=== PATIENT | male | born 1960 | race African-American/Black ===

== ENCOUNTER 2017-11-25 12:56 | Emergency (ER) | payer OTHER ==
[2017-11-25 13:08] VITALS: BP 111/70; PULSE 83; TEMP 98.3; BMI 36.1
--- NOTE | 2017-11-25 14:13 | PDOC ---
History of Present Illness - General Chief Complaint: Injury Stated Complaint: RIGHT FOOT INJURY Time Seen by Provider: 11/25/17 13:58 Past History - Past Medical History Allergies/Adverse Reactions: Allergies Allergy/AdvReac Type Severity Reaction Status Date / Time No Known Allergies Allergy Verified 11/25/17 13:04 Home Medications: Ambulatory Orders Colchicine 0.6 mg PO DAILY #7 capsule 11/25/17 Methylprednisolone [Medrol Dose Ravindra] 4 mg PO ASDIR #21 tablet 11/25/17 COPD: No DVT: No Dementia: No Diabetes: Yes HTN: Yes Hypercholesterolemia: Yes - Immunization History Immunization Up to Date: Yes - Suicide/Smoking/Psychosocial Hx Smoking History: Current every day smoker Have you smoked in the past 12 months: Yes Number of Cigarettes Smoked Daily: 10 Information on smoking cessation initiated: No Hx Alcohol Use: No Drug/Substance Use Hx: No Substance Use Type: None *Physical Exam - Vital Signs Last Vital Signs Temp Pulse Resp BP Pulse Ox 98.3 F 83 17 111/70 96 11/25/17 13:04 11/25/17 13:04 11/25/17 13:04 11/25/17 13:04 11/25/17 13:04 ED Treatment Course - RADIOLOGY Radiology Studies Ordered: Category Date Time Status ANKLE & FOOT-RIGHT* [RAD] Stat Radiology 11/25/17 13:38 Taken *DC/Admit/Observation/Transfer Diagnosis at time of Disposition: Gout Qualifiers: Gout site: toe Gout etiology: unspecified cause Chronicity: acute Laterality: right Qualified Code(s): M10.9 - Gout, unspecified - Discharge Dispostion Disposition: HOME Condition at time of disposition: Good - Prescriptions Prescriptions: Colchicine 0.6 mg PO DAILY #7 capsule Methylprednisolone [Medrol Dose Ravindra] 4 mg PO ASDIR #21 tablet - Referrals Referrals: Kris Garland MD [Staff Physician] - - Patient Instructions Printed Discharge Instructions: DI for Gout Additional Instructions: You have gout. This is what causing the pain in your toe. Please take steroids as directed for one week. Please monitor your blood sugars as steroid make your sugar is high. Please take the colchicine daily. He may also take ibuprofen 800 mg 3 times a day. Elevate your foot you may apply ice or heat to the area which ever feels better. Please follow up with her primary care doctor this week. Return to the emergency department if you have worsening pain, shortness of breath, the faculty walking or any changes in her symptoms. - Post Discharge Activity Forms/Work/School Notes: Back to Work
[2017-11-25] MEDS ORDERED: INDOMETHACIN 50 MG CAPSULE PO ONE (14:53)
== END 2017-11-25 16:18 | disposition home or self-care (01) ==
LOC: JERFT 12:56
DX: M10.9 Gout, unspecified (principal); I10 Essential (primary) hypertension; E11.9 Type 2 diabetes mellitus without complications; E78.00 Pure hypercholesterolemia, unspecified; F17.210 Nicotine dependence, cigarettes, uncomplicated
CPT/HCPCS: 36415; 73610-TC-RT; 73630-TC-RT; 84550; 99281-25

== ENCOUNTER 2018-01-07 08:11 | Emergency (ER) | payer OTHER ==
--- NOTE | 2018-01-07 08:21 | PDOC ---
History of Present Illness - General Stated Complaint: EDEMA Time Seen by Provider: 01/07/18 08:15 - History of Present Illness Initial Comments: 01/07/18 08:40 57 yo M with h/o HTN, NIDDM, and gout who presents with R sided ankle pain. Pt. reports severe, sharp R ankle pain and swelling beginning saturday. Pain worse with weight bearing. Denies warmth, redness of joint. Denies ankle trauma, or injury. Reports 5 years of gout with recurrent R sided MTP joint pain. Also endorses 1 year of epsiodic R ankle pain. Recently evaluated in [facility] ED ( ) for gout attack. D/c'd with Medrol dose pack and colchicine. R ankle/foot plain film with no evidence of acute pathology. Chronic degenerative changes.Denies N/V, CP, cough, SOB, numbness/tinlging, weakness, abdominal pain , urinary or bowel complaints. Patient PCP recently d/c'd indomethacin 200 mg 10 days ago. On Allopurinol. On lisniopril for HTN. Denies losartan use. Denies recent surgery, trauma, immobilization. Denies h/o malignancy. Past History - Past Medical History Allergies/Adverse Reactions: Allergies Allergy/AdvReac Type Severity Reaction Status Date / Time No Known Allergies Allergy Verified 01/07/18 08:30 Home Medications: Ambulatory Orders Allopurinol [Zyloprim -] 100 mg PO DAILY 01/07/18 Chlorthalidone 25 mg PO DAILY 01/07/18 Colchicine [Colcrys -] 0.6 mg PO DAILY #7 tablet 01/07/18 Enalapril Maleate [Vasotec] 20 mg PO DAILY 01/07/18 Hydrocodone/Acetaminophen [Hydrocodone-Acetamin 5-325 mg] 1 each PO PRN PRN Metformin HCl [Metformin HCl ER] 1,000 mg PO DAILY 01/07/18 Methylprednisolone [Medrol Dose Ravindra] 4 mg PO ASDIR #21 tablet 01/07/18 COPD: No DVT: No Dementia: No Diabetes: Yes HTN: Yes Hypercholesterolemia: Yes - Immunization History Immunization Up to Date: Yes - Suicide/Smoking/Psychosocial Hx Smoking History: Current every day smoker Have you smoked in the past 12 months: Yes Number of Cigarettes Smoked Daily: 10 Hx Alcohol Use: No Drug/Substance Use Hx: No Substance Use Type: None Review of Systems - Review of Systems Comments:: 01/07/18 08:18 GENERAL/CONSTITUTIONAL: No fever or chills. No weakness. HEAD, EYES, EARS, NOSE AND THROAT: No change in vision. No ear pain or discharge. No sore throat.- CARDIOVASCULAR: No chest pain or shortness of breath RESPIRATORY: No cough, wheezing, or hemoptysis. GASTROINTESTINAL: No nausea, vomiting, diarrhea or constipation. GENITOURINARY: No dysuria, frequency, or change in urination. MUSCULOSKELETAL: + R leg swelling/pain. No neck or back pain. SKIN: No rash NEUROLOGIC: No headache, vertigo, loss of consciousness, or change in strength/ sensation. ENDOCRINE: No increased thirst. No abnormal weight change HEMATOLOGIC/LYMPHATIC: No anemia, easy bleeding, or history of blood clots. ALLERGIC/IMMUNOLOGIC: No hives or skin allergy. *Physical Exam - Physical Exam Comments: 01/07/18 08:19 GENERAL: Awake, alert, and fully oriented, in no acute distress HEAD: No signs of trauma, normocephalic, atraumatic EYES: PERRLA, EOMI, sclera anicteric, conjunctiva clear ENT: Hearing grossly normal, nares patent, oropharynx clear without exudates. Moist mucosa NECK: Normal ROM, supple, no lymphadenopathy, JVD, or masses LUNGS: No distress, speaks full sentences, clear to auscultation bilaterally HEART: Regular rate and rhythm, normal S1 and S2, no murmurs, rubs or gallops, peripheral pulses normal and equal bilaterally. EXTREMITIES : RLE + R sided talofibular ttp. Right sided non pitting edema. 1 + pitting edema on plantar surface of RLE. + TTP at base of planatar surface of 1st metatarsal. Absent warmth, redness, or fluctuance. Mild swelling at lateral 1st MTP. SKIN: Warm, Dry, normal turgor, no rashes or lesions noted ED Treatment Course - LABORATORY CBC & Chemistry Diagram: 01/07/18 09:35 01/07/18 09:35 Medical Decision Making - Medical Decision Making 01/07/18 08:56 57 yo M with h/o HTN, NIDDM, and gout who presents with severe, sharp R ankle pain and swelling beginning saturday. Pain worse with weight bearing. Denies warmth, redness of joint. Denies ankle trauma, or injury.Recently evaluated in [facility] ED ( 11/25/17) for gout attack. D/c'd with Medrol dose pack and colchicine. R ankle/foot plain film with no evidence of acute pathology. Chronic degenerative changes. Denies N/V, CP, cough, SOB, numbness/tinlging, weakness, abdominal pain, urinary or bowel complaints. Patient PCP recently d/c'd indomethacin 200 mg 10 days ago. On Allopurinol. Physical exam noteable for + R sided talofibular ttp. Right sided non pitting edema. 1 + pitting edema on plantar surface of RLE. + TTP at base of planatar surface of 1st metatarsal. Absent warmth, redness, or fluctuance. Mild swelling at lateral 1st MTP. Ankle neurovasculalry intact with palpable DP and PT pulse. Joint ttp most likely 2/2 gout. No eveidence of septic joint involvment. Pt. non toxic appearing and hemodynamically stable, with absent physical exam findings. Low suspicion of CHF with absent evidence of heart disease, or resp complaints. Will consider DVT , although pt. low risk based on weils criteria. DDx: Gout, Plantar Fascitis, Ankle sprain ED Course: Doppler R leg Colchicine, Perocet, crutches. 01/07/18 11:46 Toradol Patient pain improved. Patient stable for d/c with return precautions. Advised to f/u with PMD. Sent Colchicine and Medrol to pharmacy. 01/07/18 12:22 RLE U/S: No evidence of DVT. 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 Please follow up with your primary care physician within one week. Please take colchicine once per day and Medrol dose ravindra as instructed. - Post Discharge Activity - Attestations Physician Attestion: 01/07/18 10:56 I attest to the documentation provided in this note.
[2018-01-07 08:30] VITALS: BMI 35.6
[2018-01-07] MEDS ORDERED: COLCHICINE 0.6 MG TABLET (FP) PO ONE (09:20)
[2018-01-07] MEDS ORDERED: COLCHICINE 0.6 MG TABLET (FP) ONE (09:35)
[2018-01-07 09:49] LABS: EOS % 1.4 % (0-4.5); HEMATOCRIT 43.2 % (35.4-49); HEMOGLOBIN 14.7 GM/dL (11.7-16.9); LYMPH % 20.1 % (8-40); MCH 32.6 pg (25.7-33.7); MCHC 34.1 g/dl (32.0-35.9); MEAN CELL VOLUME 95.7 fl (80-96); MEAN PLT VOLUME 10.4 fl (7.5-11.1); MONO % 7.1 % (3.8-10.2); NEUT % 70.4 % (42.8-82.8); PLATELET COUNT 181 K/MM3 (134-434); RBC 4.52 M/mm3 (4.00-5.60); RDW 13.3 % (11.9-15.9); WHITE BLOOD COUNT 11.6 K/mm3 (4.0-10.0)
--- NOTE | 2018-01-07 10:00 | PDOC ---
Attending Attestation - Resident Resident Name: Riley Campos - ED Attending Attestation I have performed the following: I have examined & evaluated the patient, The case was reviewed & discussed with the resident, I agree w/resident's findings & plan, Exceptions are as noted - HPI HPI: 01/07/18 09:58 57-year-old male with history of gout and diabetes presents with swelling and pain around his right ankle over the last week, worsening over the last 2 days. No injury, admits to noncompliance with his diet, and was recently taken off his indomethacin about a week ago by his primary physician but remains compliant with his allopurinol. No fevers or chills, no motor or sensory deficit. Seen here for similar symptoms in November, was treated with indomethacin and Advil dose pack with excellent relief. - Physicial Exam PE: 01/07/18 09:59 Afebrile. Well-appearing Slight soft tissue swelling over the right lateral malleolus with some tenderness to palpation, slightly limited range of motion secondary to pain. Some soft tissue swelling along the dorsum of the foot, neurovascularly intact distally. No joint effusions, no bony deformity. - Medical Decision Making 01/07/18 10:00 Patient seen and evaluated with the resident. I agree with the overall evaluation, assessment, and management with the following summary of visit: 57-year-old male with a gout flare of right ankle, otherwise well-appearing and neurovascularly intact. Right leg Doppler ordered Colchicine and pain control Likely discharge with rheum follow-up
[2018-01-07 10:05] LABS: ALBUMIN 3.8 g/dl (3.4-5.0); ALK PHOS 84 U/L (45-117); ANION GAP 8 (8-16); BILIRUBIN,TOTAL 0.7 mg/dL (0.2-1.0); BLOOD UREA NITROGEN 17 mg/dL (7-18); CHLORIDE 99 mmol/L (98-107); CO2 29 mmol/L (21-32); CREATININE 1.1 mg/dL (0.7-1.3); GLUCOSE,RANDOM 115 mg/dL (74-106); POTASSIUM 3.8 mmol/L (3.5-5.1); SGOT/AST 14 U/L (15-37); SGPT/ALT 26 U/L (12-78); SODIUM 136 mmol/L (136-145); TOT PROT 8.1 g/dl (6.4-8.2); URIC ACID 7.7 mg/dL (2.6-7.2)
[2018-01-07] MEDS ORDERED: KETOROLAC TROMETHAMINE 60 MG/2 ML VIAL IM ONE (11:31)
[2018-01-07] MEDS ORDERED: KETOROLAC TROMETHAMINE 60 MG/2 ML VIAL ONE (11:39)
[2018-01-07 12:28] VITALS: BP 150/97; PULSE 85; TEMP 98.7
== END 2018-01-07 12:25 | disposition home or self-care (01) ==
LOC: JER 08:11
PROC: 3E0233Z Introduction of Anti-inflammatory into Muscle, Percutaneous Approach (ICD-10-PCS; principal; 2018-01-07)
DX: M1A.4710 Other secondary chronic gout, right ankle and foot, without tophus (tophi) (principal); I10 Essential (primary) hypertension; E11.9 Type 2 diabetes mellitus without complications; Z79.84 Long term (current) use of oral hypoglycemic drugs; E78.00 Pure hypercholesterolemia, unspecified; F17.210 Nicotine dependence, cigarettes, uncomplicated
CPT/HCPCS: 36415; 71045-TC-FY; 80053; 84550; 85025; 93971-TC; 96372; 99282-25

== ENCOUNTER 2019-02-17 09:11 | Emergency (ER) | payer OTHER ==
[2019-02-17 09:25] VITALS: BP 162/100; PULSE 95; TEMP 99.3; BMI 36.3
[2019-02-17] MEDS ORDERED: IBUPROFEN 600 MG TABLET (FP) PO ONE ×2 (10:25→11:19)
--- NOTE | 2019-02-17 11:30 | PDOC ---
History of Present Illness - General Chief Complaint: Respiratory Stated Complaint: FLU LIKE SYMPTOMS Time Seen by Provider: 02/17/19 10:07 History Source: Patient Exam Limitations: No Limitations - History of Present Illness Initial Comments: 02/17/19 11:19 59 y/o male presents to the ED with cough, fever, and nasal congestion x 3 days. Pt denies sore throat, headache, chest pain, difficulty breathing, abd pain, diarrhea, urinary complaints, or edema. Pt with hx of htn and states takes his meds as scheduled. 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 Timing/Duration: reports: other (3 days ) Severity: reports: mild Possible Cause: Yes: occasional episodes Modifying Factors: improves with: coughing Associated Symptoms: reports: cough, fever/chills, nasal congestion Past History - Travel Traveled outside of the country in the last 30 days: No Close contact w/someone who was outside of country & ill: No - Past Medical History Allergies/Adverse Reactions: Allergies Allergy/AdvReac Type Severity Reaction Status Date / Time No Known Allergies Allergy Verified 02/17/19 09:17 Home Medications: Ambulatory Orders Allopurinol [Zyloprim -] 100 mg PO DAILY 01/07/18 Chlorthalidone 25 mg PO DAILY 01/07/18 Enalapril Maleate [Vasotec] 20 mg PO DAILY 01/07/18 metFORMIN HCL [Metformin HCl ER] 1,000 mg PO DAILY 01/07/18 Anemia: No Asthma: No Cancer: No Cardiac Disorders: No CVA: No COPD: No CHF: No DVT: No Dementia: No Diabetes: Yes GI Disorders: No Disorders: No HTN: Yes Hypercholesterolemia: Yes Liver Disease: No Seizures: No Thyroid Disease: No - Surgical History Orthopedic Surgery: Yes (shoulder) - Immunization History Immunization Up to Date: Yes - Suicide/Smoking/Psychosocial Hx Smoking History: Current every day smoker Have you smoked in the past 12 months: Yes Number of Cigarettes Smoked Daily: 7 Information on smoking cessation initiated: Yes 'Breaking Loose' booklet given: 04/29/18 Hx Alcohol Use: No Drug/Substance Use Hx: No Substance Use Type: Alcohol Hx Substance Use Treatment: No Patient Lives Alone: No Lives with/in: spouse/SO Review of Systems - Review of Systems Able to Perform ROS?: No Is the patient limited Slovenian proficient: No Constitutional: No: Symptoms Reported HEENTM: No: Symptoms Reported Respiratory: Yes: Cough Cardiac (ROS): No: Symptoms Reported ABD/GI: No: Symptoms Reported : No: Symptoms Reported Musculoskeletal: No: Symptoms Reported Integumentary: No: Symptoms Reported Neurological: No: Symptoms reported *Physical Exam - Vital Signs Last Vital Signs Temp Pulse Resp BP Pulse Ox 99.3 F 95 H 22 H 162/100 98 02/17/19 09:17 02/17/19 09:17 02/17/19 09:17 02/17/19 09:17 02/17/19 09:17 - Physical Exam General Appearance: Yes: Nourished, Appropriately Dressed. No: Apparent Distress HEENT: positive: EOMI, VI, TMs Normal, Nasal Congestion (beige secretions), Rhinorrhea. negative: Pharynx Normal, Tonsillar Exudate, Tonsillar Erythema Neck: positive: Supple Respiratory/Chest: positive: Lungs Clear, Normal Breath Sounds. negative: Respiratory Distress, Accessory Muscle Use Cardiovascular: positive: Regular Rhythm. negative: Murmur, Tachycardia Gastrointestinal/Abdominal: positive: Soft. negative: Tenderness Extremity: positive: Normal Capillary Refill. negative: Pedal Edema Integumentary: positive: Normal Color, Warm, Moist Neurologic: positive: Normal Mood/Affect, Motor Strength 5/5 (ambulatory) Medical Decision Making - Medical Decision Making 02/17/19 11:02 CC: cough, nasal congestion and fever x 3 days, + smoker, hx htn Exam: noted thick nasal secretions, low grade temp Plan: rsv, influenza and motrin 02/17/19 11:43 Laboratory Tests 02/17/19 02/17/19 10:26 10:26 Influenza A (Rapid) Negative Influenza B (Rapid) Negative RSV Rapid Negative Pt will be discharged home with zpak secondary to hx of smoking *DC/Admit/Observation/Transfer Diagnosis at time of Disposition: Bronchitis - Discharge Dispostion Disposition: HOME Condition at time of disposition: Good - Referrals - Patient Instructions Printed Discharge Instructions: DI for Acute Bronchitis Additional Instructions: Please take antibiotic as prescribed. Refrain from smoking. - Post Discharge Activity Forms/Work/School Notes: Back to Work
== END 2019-02-17 12:12 | disposition home or self-care (01) ==
LOC: JER 09:11
DX: J40 Bronchitis, not specified as acute or chronic (principal); I10 Essential (primary) hypertension; E11.9 Type 2 diabetes mellitus without complications; Z79.84 Long term (current) use of oral hypoglycemic drugs; E78.00 Pure hypercholesterolemia, unspecified; F17.210 Nicotine dependence, cigarettes, uncomplicated
CPT/HCPCS: 87804; 87807; 99281-25

== ENCOUNTER 2019-09-28 13:11 | Day surgery (SDC) | payer OTHER ==
[2019-09-25 15:47] VITALS: BMI 33.4
--- NOTE | 2019-09-28 15:09 | HP ---
Admitting History and Physical - Admission Chief Complaint: LKow back and b/l Leg pain. History of Present Illness: Pt has chronic low back and leg pain due to lumbar radiculopathy. Well managed with [facility]. History Source: Patient - Past Medical History Cardiovascular: Yes: HTN - Smoking History Smoking history: Current every day smoker Have you smoked in the past 12 months: Yes Aproximately how many cigarettes per day: 10 - Alcohol/Substance Use Hx Alcohol Use: Yes (socially) Home Medications - Allergies Allergies/Adverse Reactions: Allergies Allergy/AdvReac Type Severity Reaction Status Date / Time No Known Allergies Allergy Verified 09/25/19 15:52 - Home Medications Home Medications: Ambulatory Orders Allopurinol [Zyloprim -] 100 mg PO DAILY 01/07/18 Chlorthalidone 25 mg PO DAILY 01/07/18 Enalapril Maleate [Vasotec] 20 mg PO HS 01/07/18 metFORMIN HCL [Metformin HCl ER] 1,000 mg PO DAILY 01/07/18 Atorvastatin Ca [Lipitor] 40 mg PO HS 09/25/19 Physical Examination Vital Signs: Vital Signs Temperature 98 F 09/28/19 13:51 Pulse Rate 77 09/28/19 13:51 Respiratory Rate 16 09/28/19 13:51 Blood Pressure 139/91 09/28/19 13:51 O2 Sat by Pulse Oximetry (%) 97 09/28/19 13:51
[2019-09-28] MEDS ORDERED: LIDOCAINE HCL 1%, 10 MG/ML (20ML VIAL) ONE (15:14)
[2019-09-28] MEDS ORDERED: BUPIVACAINE HCL/PF 0.25% (2.5MG/ML) 10 ML VIAL ONE ×2 (15:15→15:23)
[2019-09-28] MEDS ORDERED: MIDAZOLAM HCL 2 MG/2 ML SINGLE DOSE VIAL ONE ×2 (15:17→15:43)
[2019-09-28] MEDS ORDERED: BETAMET ACET/BETAMET NA PH 30 MG/5 ML VIAL ONE (15:24)
[2019-09-28] MEDS ORDERED: LIDOCAINE HCL 1%, 10 MG/ML (20ML VIAL) INF ONE (15:30)
[2019-09-28] MEDS ORDERED: BETAMET ACET/BETAMET NA PH 30 MG/5 ML VIAL IM ONE (15:37)
[2019-09-28] MEDS ORDERED: IOHEXOL 180 MG/1 ML ML IJ ONE (15:39)
[2019-09-28 16:20] VITALS: BP 148/94; PULSE 70; TEMP 97.9
== END 2019-09-28 16:45 | disposition home or self-care (01) ==
LOC: JASU-SURG 13:11
PROVIDERS: ATTEND Pain Medicine Pain Medicine
PROC: 3E0R33Z Introduction of Anti-inflammatory into Spinal Canal, Percutaneous Approach (ICD-10-PCS; 2019-09-28)
PROC: B01BYZZ Fluoroscopy of Spinal Cord using Other Contrast (ICD-10-PCS; 2019-09-28)
PROC: 3E0R3BZ Introduction of Anesthetic Agent into Spinal Canal, Percutaneous Approach (ICD-10-PCS; principal; 2019-09-28 15:00)
DX: M54.16 Radiculopathy, lumbar region (principal); M54.5 Low back pain; I10 Essential (primary) hypertension; E11.9 Type 2 diabetes mellitus without complications; Z79.84 Long term (current) use of oral hypoglycemic drugs
CPT/HCPCS: 76000-TC-FY; 82962

== ENCOUNTER 2021-09-07 11:18 | Emergency (ER) | payer OTHER ==
[2021-09-07 11:36] VITALS: BP 105/76; PULSE 87; TEMP 98.2; BMI 31.5
[2021-09-07] MEDS ORDERED: KETOROLAC TROMETHAMINE 30 MG/1 ML VIAL IM ONE (12:01)
[2021-09-07] MEDS ORDERED: COLCHICINE 0.6 MG CAP PO ONE (12:01)
[2021-09-07] MEDS ORDERED: KETOROLAC TROMETHAMINE 30 MG/1 ML VIAL ONE (12:04)
== END 2021-09-07 12:28 | disposition home or self-care (01) ==
LOC: JER 11:18 → JERFT 11:18
PROC: 3E0233Z Introduction of Anti-inflammatory into Muscle, Percutaneous Approach (ICD-10-PCS; principal; 2021-09-07)
DX: M1A.0711 Idiopathic chronic gout, right ankle and foot, with tophus (tophi) (principal)
CPT/HCPCS: 96372; 99284-25

== ENCOUNTER 2021-12-13 10:30 | Emergency (ER) | payer OTHER ==
[2021-12-13 10:46] VITALS: BP 121/80; PULSE 83; TEMP 98.3; BMI 31.4
[2021-12-13] MEDS ORDERED: KETOROLAC TROMETHAMINE 15 MG/ML VIAL IM ONE (11:33)
[2021-12-13] MEDS ORDERED: KETOROLAC TROMETHAMINE 15 MG/ML VIAL ONE (11:41)
== END 2021-12-13 11:49 | disposition home or self-care (01) ==
LOC: JER 10:30 → JERFT 10:30
PROC: 3E0233Z Introduction of Anti-inflammatory into Muscle, Percutaneous Approach (ICD-10-PCS; principal; 2021-12-13)
DX: M10.9 Gout, unspecified (principal)
CPT/HCPCS: 96372; 99284-25

== ENCOUNTER 2022-05-22 04:46 | Day surgery (SDC) | payer OTHER ==
[2022-05-18 14:24] VITALS: BMI 32.3
[2022-05-22] MEDS ORDERED: BUPIVACAINE HCL/PF 0.25% (2.5MG/ML) 10 ML VIAL ONE ×2 (07:35→10:17)
[2022-05-22] MEDS ORDERED: TRIAMCINOLONE ACET 40MG/1ML VIAL ONE ×2 (07:35→10:17)
[2022-05-22] MEDS ORDERED: LIDOCAINE HCL/PF 1% SDV 5ML VIAL ONE (07:36)
[2022-05-22] MEDS ORDERED: IOHEXOL 180 MG/1 ML ML IJ ONE (10:26)
[2022-05-22] MEDS ORDERED: TRIAMCINOLONE ACET 40MG/1ML VIAL IJ ONE (10:26)
[2022-05-22] MEDS ORDERED: LIDOCAINE HCL 1% PRESERVATIVE FREE - 30ML VIAL IJ ONE (10:26)
[2022-05-22] MEDS ORDERED: BUPIVACAINE HCL/PF 0.25% (2.5MG/ML) 10 ML VIAL IJ ONE (10:27)
[2022-05-22 14:11] VITALS: BP 115/70; PULSE 72; TEMP 97.3
== END 2022-05-22 10:49 | disposition home or self-care (01) ==
LOC: JASU-SURG 04:46
PROVIDERS: ATTEND Pain Medicine Pain Medicine
PROC: 3E0U329 Introduction of Other Anti-infective into Joints, Percutaneous Approach (ICD-10-PCS; 2022-05-22)
PROC: BQ40ZZZ Ultrasonography of Right Hip (ICD-10-PCS; 2022-05-22)
PROC: 3E0U3BZ Introduction of Anesthetic Agent into Joints, Percutaneous Approach (ICD-10-PCS; principal; 2022-05-22 09:30)
DX: M16.11 Unilateral primary osteoarthritis, right hip (principal)
CPT/HCPCS: 76000-TC-FY

== ENCOUNTER 2022-06-19 04:15 | Day surgery (SDC) | payer OTHER ==
[2022-06-18 09:08] VITALS: BMI 31.8
[2022-06-19] MEDS ORDERED: BUPIVACAINE HCL/PF 0.5% (5MG/ML) 10 ML VIAL ONE (07:07)
[2022-06-19] MEDS ORDERED: LIDOCAINE HCL/PF 1% SDV 5ML VIAL ONE (07:07)
[2022-06-19] MEDS ORDERED: BUPIVACAINE HCL/PF 0.75% 10 ML VIAL ONE (07:07)
[2022-06-19] MEDS ORDERED: DEXAMETHASONE SOD PHOSPHATE 10 MG/1 ML VIAL ONE (07:08)
[2022-06-19] MEDS ORDERED: LIDOCAINE HCL 1% PRESERVATIVE FREE - 30ML VIAL IJ ONE ×2 (08:46)
[2022-06-19 09:42] VITALS: BP 123/70; PULSE 82; RESP 18; TEMP 98.2
== END 2022-06-19 10:05 | disposition home or self-care (01) ==
LOC: JASU-SURG 04:15
PROVIDERS: ATTEND Pain Medicine Pain Medicine
PROC: 01HY3MZ Insertion of Neurostimulator Lead into Peripheral Nerve, Percutaneous Approach (ICD-10-PCS; principal; 2022-06-19 08:00)
DX: G89.4 Chronic pain syndrome (principal); M25.551 Pain in right hip
CPT/HCPCS: 64555; C1778; 76000-TC-FY; J1100

== ENCOUNTER 2022-11-22 08:54 | Emergency (ER) | payer OTHER ==
[2022-11-22 09:01] VITALS: BP 132/77; PULSE 107; RESP 18; TEMP 98.7; BMI 30.4
[2022-11-22] MEDS ORDERED: KETOROLAC TROMETHAMINE 30 MG/1 ML VIAL IM ONE (10:57)
[2022-11-22] MEDS ORDERED: COLCHICINE 0.6 MG TAB PO ONE (10:58)
[2022-11-22] MEDS ORDERED: COLCHICINE 0.6 MG TAB ONE (11:17)
[2022-11-22] MEDS ORDERED: KETOROLAC TROMETHAMINE 30 MG/1 ML VIAL ONE (11:20)
== END 2022-11-22 11:35 | disposition home or self-care (01) ==
LOC: JERFT 08:54
PROC: 3E0233Z Introduction of Anti-inflammatory into Muscle, Percutaneous Approach (ICD-10-PCS; principal; 2022-11-22)
DX: M10.9 Gout, unspecified (principal)
CPT/HCPCS: 96372; 99284-25

== ENCOUNTER 2023-06-25 11:30 | Day surgery (SDC) | payer OTHER ==
[2023-06-21 17:45] VITALS: BMI 30.6
[~2023-06-25 11:30] MED LIST: ACETAMINOPHEN 500 MG TABLET (FP) PO PRN
[2023-06-25] MEDS ORDERED: TRIAMCINOLONE ACETONIDE 40 MG/ML 10 ML VIAL NR ONE (13:06)
[2023-06-25] MEDS ORDERED: BUPIVACAINE HCL/PF 0.5% (5MG/ML) 10 ML VIAL NR ONE (13:06)
[2023-06-25] MEDS ORDERED: IOHEXOL 180 MG/1 ML ML IJ ONE (13:06)
[2023-06-25] MEDS ORDERED: LIDOCAINE HCL 1% PRESERVATIVE FREE - 30ML VIAL IJ ONE (13:06)
[2023-06-25 14:41] VITALS: BP 128/68; PULSE 66; RESP 20; TEMP 97.8
== END 2023-06-25 14:15 | disposition home or self-care (01) ==
LOC: JASU-SURG 11:30
PROVIDERS: ATTEND Pain Medicine Pain Medicine
PROC: 3E0U3BZ Introduction of Anesthetic Agent into Joints, Percutaneous Approach (ICD-10-PCS; 2023-06-25)
PROC: 3E0U33Z Introduction of Anti-inflammatory into Joints, Percutaneous Approach (ICD-10-PCS; principal; 2023-06-25 13:00)
DX: M16.12 Unilateral primary osteoarthritis, left hip (principal)
CPT/HCPCS: 76000-TC-FY

== ENCOUNTER 2023-08-09 04:23 | Day surgery (SDC) | payer OTHER ==
[2023-08-07 12:54] VITALS: BMI 30.6
[2023-08-09] MEDS ORDERED: DEXAMETHASONE SOD PHOSPHATE 10 MG/1 ML VIAL ONE (07:19)
[2023-08-09] MEDS ORDERED: LIDOCAINE HCL/PF 1% SDV 5ML VIAL ONE (07:19)
[2023-08-09 07:34] VITALS: RESP 18
[2023-08-09] MEDS ORDERED: LIDOCAINE HCL 1% PRESERVATIVE FREE - 30ML VIAL INF ONE (09:08)
[2023-08-09] MEDS ORDERED: DEXAMETHASONE SOD PHOSPHATE 10 MG/1 ML VIAL IVPUSH ONE (09:09)
[2023-08-09] MEDS ORDERED: IOHEXOL 180 MG/1 ML ML IJ ONE (09:10)
[2023-08-09] MEDS ORDERED: ACETAMINOPHEN 500 MG TABLET (FP) PO PRN (09:27)
[2023-08-09 10:14] VITALS: BP 141/80; PULSE 65; TEMP 98
== END 2023-08-09 09:49 | disposition home or self-care (01) ==
LOC: JASU-SURG 04:23
PROVIDERS: ATTEND Pain Medicine Pain Medicine
PROC: 3E0R3BZ Introduction of Anesthetic Agent into Spinal Canal, Percutaneous Approach (ICD-10-PCS; 2023-08-09)
PROC: 3E0R33Z Introduction of Anti-inflammatory into Spinal Canal, Percutaneous Approach (ICD-10-PCS; principal; 2023-08-09 09:15)
DX: M54.16 Radiculopathy, lumbar region (principal); M48.061 Spinal stenosis, lumbar region without neurogenic claudication
CPT/HCPCS: 76000-TC-FY; J1100

== ENCOUNTER 2023-08-26 05:14 | Day surgery (SDC) | payer OTHER ==
[2023-08-23 08:20] VITALS: BMI 31.5
[2023-08-26] MEDS ORDERED: MIDAZOLAM HCL 2 MG/2 ML SINGLE DOSE VIAL ONE ×2 (14:46→15:00)
[2023-08-26] MEDS ORDERED: FENTANYL CITRATE/PF 50 MCG/ML VIAL ONE ×3 (14:46→15:07)
[2023-08-26 16:52] VITALS: BP 148/76; PULSE 80; RESP 18; TEMP 97.7
== END 2023-08-26 16:20 | disposition home or self-care (01) ==
LOC: JASU-SURG 05:14
PROVIDERS: ATTEND Urology
PROC: 0TF4XZZ Fragmentation in Left Kidney Pelvis, External Approach (ICD-10-PCS; principal; 2023-08-26 13:30)
DX: N20.0 Calculus of kidney (principal)
CPT/HCPCS: 82962

== ENCOUNTER 2024-04-14 07:12 | Emergency (ER) | payer OTHER ==
[2024-04-14 07:19] VITALS: BP 127/54; PULSE 80; RESP 18; TEMP 98.4; BMI 33.4
[2024-04-14] MEDS ORDERED: ACETAMINOPHEN 325 MG TABLET (FP) ONE (08:18)
[2024-04-14] MEDS: ACETAMINOPHEN 500 MG TABLET (FP) PO ONE (08:22)
[2024-04-14] MEDS ORDERED: SILVER SULFADIAZINE 1% TOP CREAM 50 GM JAR TP ONE (10:53)
[2024-04-14] MEDS: SILVER SULFADIAZINE 1% TOP CREAM 50 GM JAR TP ONE (11:05)
== END 2024-04-14 11:29 | disposition home or self-care (01) ==
LOC: JER 07:12
DX: L60.0 Ingrowing nail (principal); M79.674 Pain in right toe(s)
CPT/HCPCS: 99283-25

== ENCOUNTER 2024-05-09 06:58 | Emergency (ER) | payer OTHER ==
[2024-05-09 07:13] VITALS: BP 106/59; PULSE 76; RESP 18; TEMP 98.6; BMI 35.5
[2024-05-09] MEDS ORDERED: INDOMETHACIN 50 MG CAPSULE PO ONE (07:30)
[2024-05-09] MEDS ORDERED: predniSONE 20 MG TABLET (UD) PO ONE (07:31)
[2024-05-09] MEDS ORDERED: DEXAMETHASONE SOD PHOSPHATE 10 MG/1 ML VIAL ONE (07:40)
[2024-05-09] MEDS: DEXAMETHASONE SOD PHOSPHATE 10 MG/1 ML VIAL IM ONE (08:15)
== END 2024-05-09 08:16 | disposition home or self-care (01) ==
LOC: JER 06:58
PROC: 3E023GC Introduction of Other Therapeutic Substance into Muscle, Percutaneous Approach (ICD-10-PCS; principal; 2024-05-09)
DX: M1A.0710 Idiopathic chronic gout, right ankle and foot, without tophus (tophi) (principal); M25.571 Pain in right ankle and joints of right foot
CPT/HCPCS: 96372; 99284-25; J1100

== ENCOUNTER 2024-05-18 06:59 | Emergency (ER) | payer OTHER ==
[2024-05-18 07:26] VITALS: BP 111/65; PULSE 80; RESP 18; TEMP 98.6; BMI 30.8
[2024-05-18] MEDS ORDERED: DEXAMETHASONE SOD PHOSPHATE 10 MG/1 ML VIAL ONE (08:22)
[2024-05-18] MEDS: DEXAMETHASONE SOD PHOSPHATE 10 MG/1 ML VIAL IM ONE (08:39)
[2024-05-18] MEDS: COLCHICINE 0.6 MG TAB PO ONE ×2 (09:10→09:20)
[2024-05-18] MEDS: COLCHICINE 0.6 MG CAP PO ONE (09:22)
== END 2024-05-18 09:30 | disposition home or self-care (01) ==
LOC: JERFT 06:59 → JER 06:59 → JERFT 09:30
PROC: 3E023GC Introduction of Other Therapeutic Substance into Muscle, Percutaneous Approach (ICD-10-PCS; principal; 2024-05-18)
DX: M10.9 Gout, unspecified (principal); M25.571 Pain in right ankle and joints of right foot
CPT/HCPCS: 73610-TC-RT-FY; 96372; 99284-25; J1100

== ENCOUNTER 2025-05-07 06:33 | Day surgery (SDC) | payer OTHER ==
[2025-05-06 11:01] VITALS: BMI 29.8
[2025-05-07] MEDS ORDERED: LIDOCAINE HCL/PF 1% SDV 5ML VIAL ONE (07:33)
[2025-05-07] MEDS ORDERED: ACETAMINOPHEN 500 MG TABLET (FP) PO PRN (08:28)
[2025-05-07] MEDS: LIDOCAINE HCL 1% PRESERVATIVE FREE - 30ML VIAL IJ ONE ×2 (10:57)
[2025-05-07 11:59] VITALS: BP 145/84; PULSE 79; RESP 16; TEMP 98.3
== END 2025-05-07 12:15 | disposition home or self-care (01) ==
LOC: JASU-SURG 06:33
PROVIDERS: ATTEND Pain Medicine Pain Medicine
PROC: 01HY3MZ Insertion of Neurostimulator Lead into Peripheral Nerve, Percutaneous Approach (ICD-10-PCS; principal; 2025-05-07 10:40)
DX: G89.4 Chronic pain syndrome (principal)
CPT/HCPCS: 64555; C1778